=== PATIENT | female | born 1965 | race Caucasian/White ===

== ENCOUNTER 2018-05-26 02:05 | Emergency (ER) | payer BC ==
[~2018-05-26] VITALS: Ht 167.6 cm; Wt 77.6 kg
[2018-05-26] MEDS ORDERED: ONDANSETRON HCL/PF 4 MG/2 ML VIAL IVP ONE (03:00)
--- NOTE | 2018-05-26 03:00 | NUR ---
PT PRESENTED TO THE ER WITH A C/O N/V SINCE 1900. PT APPEARS PALE AND IS MOAING. "WHY, WHY, WHY WHY, ROSAMARIA RAPP". PT WAS TRIAGED AT ER 11 AND CONNECTED TO THE MONITOR AND CONTINUOUS PULSE OX.
[2018-05-26] MEDS ORDERED: ONDANSETRON HCL/PF 4 MG/2 ML VIAL ONE (03:20)
--- NOTE | 2018-05-26 03:20 | NUR ---
20G IV STARTED IN RFA. BLOOD DRAWN AND SENT TO LAB.
--- NOTE | 2018-05-26 03:25 | NUR ---
PT MEDICATED ORDERED.
[2018-05-26 03:32] LABS: BASOPHILS % (AUTO) 0.1 % (0.0-2.0); EOSINOPHILS % (AUTO) 0.1 % (0.0-6.0); HEMATOCRIT 42 % (33-45); HEMOGLOBIN 14.3 g/dL (11.5-14.8); LYMPHOCYTES # (AUTO) 1.2 /CMM (0.8-4.8); MEAN CORPUSCULAR HGB CONC 34 g/dl (31.0-36.0); MEAN CORPUSCULAR VOLUME 87 fL (82-100); MONOCYTES # (AUTO) 0.5 /CMM (0.1-1.30); NEUTROPHILS # (AUTO) 6.8 /CMM (1.8-8.9); NEUTROPHILS % (AUTO) 79.8 % (43.0-81.0); PLATELET COUNT (AUTO) 244 /CMM (150-450); RED BLOOD CELL COUNT(AUTO) 4.84 MIL/uL (4.0-5.2); WHITE BLOOD COUNT (AUTO) 8.5 K/uL (4.3-11.0)
[2018-05-26 03:48] LABS: ALBUMIN 3.8 g/dL (3.4-5.0); BILIRUBIN,DIRECT 0.1 mg/dL (0.0-0.2); BILIRUBIN,TOTAL 0.5 mg/dL (0.2-1.0); CALCIUM, SERUM 8.6 mg/dL (8.5-10.1); CREATININE 0.9 mg/dL (0.6-1.3); POTASSIUM 3.6 mmol/L (3.5-5.1); TOTAL PROTEIN, SERUM 7.6 g/dL (6.4-8.2)
[2018-05-26] MEDS ORDERED: diphenhydrAMINE HCL 50 MG/ML VIAL ONE (04:10)
[2018-05-26] MEDS ORDERED: METOCLOPRAMIDE HCL 10 MG/2 ML VIAL ONE (04:11)
[2018-05-26] MEDS ORDERED: diphenhydrAMINE HCL 50 MG/ML VIAL IV ONE (04:30)
[2018-05-26] MEDS ORDERED: METOCLOPRAMIDE HCL 10 MG/2 ML VIAL IV ONE (04:30)
[2018-05-26 05:17] VITALS: BP 103/59
== END 2018-05-26 05:18 | disposition home or self-care (01) ==
LOC: ER 02:11
DX: R19.7 Diarrhea, unspecified (principal); R11.2 Nausea with vomiting, unspecified; I10 Essential (primary) hypertension; E11.9 Type 2 diabetes mellitus without complications; Z90.89 Acquired absence of other organs
CPT/HCPCS: 36415; 80048-TC; 80076-TC; 83690-TC; 85025-TC; A4606; J1200; J2405; J2765; Z7610

== ENCOUNTER 2018-11-07 19:37 | Emergency (ER) | payer BC ==
[~2018-11-07] VITALS: Ht 160 cm; Wt 70.8 kg
--- NOTE | 2018-11-07 19:45 | NUR ---
BIBSELF WITH FRIEND. AAOX4. AMBULATORY. BREATHING RAPID BUT EVEN. C/O LEFT CHEST PAIN RADIATES TO L SHOULDER AND BACK STARTED AN HOUR AGO. PT TO ER BED 9. MD AT BEDSIDE FOR EVAL. AWAITING ORDERS
--- NOTE | 2018-11-07 19:45 | NUR ---
BIBSELF WITH SISTER. AAOX4. AMBULATORY. BREATHING RAPID BUT EVEN. C/O LEFT CHEST PAIN RADIATES TO L SHOULDER AND BACK STARTED AN HOUR AGO. PAIN IS AGGREVATED WITH ROM. PT TO ER BED 9. MD AT BEDSIDE FOR EVAL. AWAITING ORDERS
--- NOTE | 2018-11-07 19:50 | NUR ---
EKG AT BEDSIDE. IV LINE OBTAINED ON RFA 20G. BLOOD DRAWN AND GIVEN TO MONTESSORI PROGRAM DIRECTOR AT BEDSIDE.
[2018-11-07 19:54] LABS: BASOPHILS % (AUTO) 0.3 % (0.0-2.0); EOSINOPHILS % (AUTO) 0.4 % (0.0-6.0); HEMATOCRIT 43 % (33-45); HEMOGLOBIN 14.8 g/dL (11.5-14.8); LYMPHOCYTES # (AUTO) 3.6 /CMM (0.8-4.8); LYMPHOCYTES % (AUTO) 38.2 % (20.0-44.0); MEAN CORPUSCULAR HGB CONC 34 g/dl (31.0-36.0); MEAN CORPUSCULAR VOLUME 87 fL (82-100); MONOCYTES # (AUTO) 0.7 /CMM (0.1-1.30); MONOCYTES % (AUTO) 7.6 % (2.0-12.0); NEUTROPHILS % (AUTO) 53.5 % (43.0-81.0); PLATELET COUNT (AUTO) 312 /CMM (150-450); WHITE BLOOD COUNT (AUTO) 9.4 K/uL (4.3-11.0)
[2018-11-07] MEDS ORDERED: MORPHINE SULFATE INJ 2 MG/ML DISP.SYRIN IV ONE (20:00)
[2018-11-07 20:06] LABS: CALCIUM, SERUM 9.7 mg/dL (8.5-10.1); CARBON DIOXIDE 26 mmol/L (21-32); CHLORIDE 102 mmol/L (98-107); CREATININE 0.9 mg/dL (0.6-1.3); GLUCOSE 185 mg/dL (74-106); POTASSIUM 3.7 mmol/L (3.5-5.1); SODIUM SERUM 141 mmol/L (136-145); UREA NITROGEN, BLOOD 19 mg/dL (7-18)
[2018-11-07] MEDS ORDERED: MORPHINE SULFATE INJ 2 MG/ML DISP.SYRIN ONE (20:09)
[2018-11-07 20:50] VITALS: BP 137/80
--- NOTE | 2018-11-07 20:58 | NUR ---
Patient discharged to home in stable condition. Written and verbal after care instructions given. Patient verbalizes understanding of instruction.IV removed. Catheter intact and site benign. Pressure and 4x4 applied to site. No bleeding noted. Pt ambulatory with a steady gait
== END 2018-11-07 20:59 | disposition home or self-care (01) ==
LOC: ER 19:39
DX: R07.89 Other chest pain (principal); E11.9 Type 2 diabetes mellitus without complications; I10 Essential (primary) hypertension
CPT/HCPCS: 36415; 71045; 80048; 84484; 85025; 93005; 96374; 99284; J2270

== ENCOUNTER 2022-10-23 20:45 | Emergency (ER) | payer BC ==
[~2022-10-23] VITALS: Ht 165.1 cm; Wt 77.1 kg
[2022-10-23 21:44] LABS: BASOPHILS % (AUTO) 0.1 % (0.0-2.0); EOSINOPHILS % (AUTO) 0.8 % (0.0-6.0); HEMATOCRIT 44 % (33-45); HEMOGLOBIN 14.5 g/dL (11.5-14.8); LYMPHOCYTES # (AUTO) 2.3 K/uL (0.8-4.8); LYMPHOCYTES % (AUTO) 19.4 % (20.0-44.0); MEAN CORPUSCULAR HGB CONC 33 g/dl (31.0-36.0); MEAN CORPUSCULAR VOLUME 87 fL (82-100); MONOCYTES # (AUTO) 0.7 K/uL (0.1-1.30); MONOCYTES % (AUTO) 5.7 % (2.0-12.0); NEUTROPHILS # (AUTO) 8.6 K/uL (1.8-8.9); PLATELET COUNT (AUTO) 278 K/uL (150-450); WHITE BLOOD COUNT (AUTO) 11.7 K/uL (4.3-11.0)
[2022-10-23 22:11] LABS: CALCIUM, SERUM 9.2 mg/dL (8.5-10.1); CARBON DIOXIDE 22 mmol/L (21-32); CHLORIDE 105 mmol/L (98-107); GLUCOSE 208 mg/dL (74-106); POTASSIUM 4.1 mmol/L (3.5-5.1); SODIUM SERUM 140 mmol/L (136-145); UREA NITROGEN, BLOOD 18 mg/dL (7-18)
[2022-10-23 22:16] LABS: ALANINE AMINOTRANSFERASE 69 U/L (12-78); ALBUMIN 3.9 g/dL (3.4-5.0); ALKALINE PHOSPHATASE 90 U/L (46-116); ASPARTATE AMINOTRANSFERASE 21 U/L (15-37); BILIRUBIN,DIRECT 0.1 mg/dL (0.0-0.2); BILIRUBIN,TOTAL 0.2 mg/dL (0.2-1.0); TOTAL PROTEIN, SERUM 7.8 g/dL (6.4-8.2)
[2022-10-23] MEDS ORDERED: IOHEXOL-350 100 ML VIAL IV ONE (22:24)
[2022-10-23] MEDS ORDERED: CT SWABBABLE VALVE TRANS SET 1 EA INFUS.SET MC ONE (22:24)
[2022-10-23] MEDS ORDERED: IV NS 0.9% 250 ML IV ONE (22:24)
--- NOTE | 2022-10-23 23:25 | NUR ---
PT EDUCATED ON NEED AND NECESSITY OF CT ANGIOGRAM AND STATED THAT SHE PREFFERED TO GO TO A DIFFERENT HOSPITAL TO RECEIVE CARE. SHE WAS URGED TO STAY AND TO CONTNUE DIAGNOSTIC TREATMENT TO ENSURE SAFTEY. HCP WAS AT BEDSIDE AND EDUCATED THE PT AND ALSO URGED THE PT TO STAY BUT PT WANTED TO LEAVE AND GO HOME. VITAL ARE STABLE HEART MONITOR SHOWS SINUS RHYTHM. BP IS WNL.
[2022-10-23 23:29] VITALS: BP 134/81
== END 2022-10-23 23:30 | disposition left against medical advice (07) ==
LOC: ER 20:52
DX: R00.2 Palpitations (principal); I10 Essential (primary) hypertension; E11.9 Type 2 diabetes mellitus without complications
CPT/HCPCS: 99285; 71045; 93005; 85025; 80048; 80076; 85378; 36415; 84484; 85730; J7050; Q9967